=== PATIENT | male | born 1960 | race Caucasian/White ===

== ENCOUNTER 2020-09-26 14:35 | Day surgery (SDC) | payer BC ==
[~2020-09-26] VITALS: Ht 167.6 cm; Wt 90.7 kg
[~2020-09-26 14:35] MED LIST: NO HOME MEDS; ceFAZolin 2gm in dextrose, iso 50 ML IV ONE; famotidine 20mg tablet PO ONE; ringers solution, lacted 1,000 ML IV SCH
[2020-09-26 14:50] VITALS: BP_SYST 151; BP_SYST 152; BP_DIAS 100
[2020-09-26 17:02] LABS: BASOPHILS % (AUTO) 0.5 % (0-1); EOSINOPHILS # (AUTO) 0.1 X10'3 (0-0.9); EOSINOPHILS % (AUTO) 0.9 % (0-6); LYMPHOCYTES # (AUTO) 2.7 X10'3 (1.1-4.8); LYMPHOCYTES % (AUTO) 35.6 % (21-51); MEAN CORPUSCULAR HEMOGLOBIN 30.4 PG (27.0-31.0); MEAN CORPUSCULAR HGB CONC 34.1 g/dL (33.0-36.5); MEAN CORPUSCULAR VOLUME 89.1 FL (78-98); MEAN PLATELET VOLUME 7.8 FL (7.4-10.4); MONOCYTES # (AUTO) 0.5 X10'3 (0-0.9); MONOCYTES % (AUTO) 6.4 % (2-12); NEUTROPHILS # (AUTO) 4.3 X10'3 (1.8-7.7); NEUTROPHILS % (AUTO) 56.6 % (42-75); PRE OP HEMATOCRIT 47.5 % (42.0-52.0); PRE OP HEMOGLOBIN 16.2 g/dL (14.0-17.9); PRE OP PLATELET COUNT 254 X10'3 (140-440); RED BLOOD COUNT 5.33 X10'6 (4.70-6.10)
[2020-09-26 17:06] LABS: ALANINE AMINOTRANSFERASE 52 U/L (12-78); ALBUMIN 3.7 G/DL (3.4-5.0); ALBUMIN/GLOBULIN RATIO 1.1 (1.1-1.5); ALKALINE PHOSPHATASE 79 IU/L (46-116); ANION GAP 8 (8-16); ASPARTATE AMINO TRANSFERASE 25 U/L (10-37); BILIRUBIN,TOTAL 0.4 MG/DL (0.1-1.0); BLOOD UREA NITROGEN 19 MG/DL (7-18); BUN/CREATININE RATIO 23.8 (5.4-32.0); CHLORIDE 105 MMOL/L (99-107); GLUCOSE 92 MG/DL (70-104); POTASSIUM 4.1 MMOL/L (3.5-5.1); SODIUM 138 MMOL/L (135-145); TOTAL CARBON DIOXIDE 25.4 MMOL/L (24-32); TOTAL PROTEIN 7.1 G/DL (6.4-8.2); eGFR > 90 ML/MIN
[2020-09-26] MEDS ORDERED: proCHLORperazine 10 MG/2 ml inj IV PRN ×3 (17:40→21:50)
[2020-09-26] MEDS ORDERED: morphine 4 MG/ML inj SYRINge IV PRN ×2 (17:40→21:50)
[2020-09-26] MEDS ORDERED: ondansetron/PF 4mg/2ml inj IV PRN ×3 (17:40→21:50)
[2020-09-26] MEDS ORDERED: morphine 2 MG/ML inj. syringe IV PRN ×2 (17:40→21:50)
[2020-09-26] MEDS ORDERED: ringers solution, lacted 1,000 ML IV SCH ×2 (17:40→21:50)
[2020-09-26] MEDS ORDERED: meperidine/PF 25mg/ml syringe IV PRN ×6 (17:40→21:50)
[2020-09-26] MEDS ORDERED: OXAZEpam 15mg capsule PO PRN (17:55)
[2020-09-26] MEDS ORDERED: BUPIVAcaine/PF 2.5 mg/ml (0.25%) 30ml vial ONE (20:46)
[2020-09-26] MEDS ORDERED: sevoflurane 250ml liquid IH ONE (21:02)
[2020-09-26] MEDS ORDERED: rocuronium 10mg/ml inj IV ONE (21:04)
[2020-09-26] MEDS ORDERED: midazolam 2 mg/2 ml injection ONE (21:04)
[2020-09-26] MEDS ORDERED: propofol inj 20 ML IV ONE (21:04)
[2020-09-26] MEDS ORDERED: fentaNYL/PF 50MCG/1 ML 2ML syringe ONE (21:04)
[2020-09-26] MEDS ORDERED: dexamethasone sod phosphate 4mg/ml inj. ONE (21:17)
[2020-09-26] MEDS ORDERED: ondansetron/PF 4mg/2ml inj ONE (22:57)
[2020-09-26] MEDS ORDERED: sugammadex 200mg/2ml injection IV ONE (22:58)
[2020-09-26 23:20] VITALS: BP 170/109
--- NOTE | 2020-09-26 23:20 | NUR ---
Received from OR via BED , accompanied by Anesthesiologist DR ANGELA and report given by Anesthesiolgist. PATIENT WAKING UP, DENIES PAIN, V/S WNL, NEUROVASCULAR CHECKS INTACT, 20G PIV RUE, SCD ON, BANDAIDS TO LAP SIGHTS OF ABDOMEN CDI.
[2020-09-26 23:30] VITALS: BP 154/90
[2020-09-26] MEDS ORDERED: HYDROcodone/acetaminophen 10/325mg tab PO ONE (23:30)
[2020-09-26 23:40] VITALS: BP 151/89
[2020-09-26 23:50] VITALS: BP 162/89
[2020-09-27] VITALS: BP 158/85
[2020-09-27 00:10] VITALS: BP 151/82
[2020-09-27 00:20] VITALS: BP 147/83
--- NOTE | 2020-09-27 00:20 | NUR ---
PATIENT A&OX4, DENIES PAIN, V/S WNL, NEUROVASCULAR CHECKS INTACT, 20G PIV LUE D/C, SCD OFF, BANDAIDS TO LAP SIGHTS OF ABDOMEN CDI.. I HAVE REVIEWED D/C INSTRUCTIONS WITH PATIENT AND FAMILY HAVE VERBALIZED UNDERSTANDING.PATIENT WAS D/C HOME WITH ALL BELONGINGS AND FAMILY GAVE TRANSPORT HOME.
--- NOTE | 2020-09-27 00:20 | NUR ---
PATIENT VOIDED 300CC URINE PRIOR TO D/C HOME
== END 2020-09-27 00:20 | disposition home or self-care (01) ==
LOC: PRE-OP 14:35
PROVIDERS: ATTEND Surgery
DX: K42.9 Umbilical hernia without obstruction or gangrene (principal); M19.90 Unspecified osteoarthritis, unspecified site; Z79.899 Other long term (current) drug therapy; Z20.828 Contact with and (suspected) exposure to other viral communicable diseases; Z98.890 Other specified postprocedural states
CPT/HCPCS: 36415; 49652; 80053; 82948; 85025; 87635; 93005; C1758; C1781; C9399; C9803; J1100; J2175; J2250; J2405; J2704; J3010; J3490; J7120; S2900; A4215; A4618; U0003

== ENCOUNTER 2022-03-03 11:00 | Emergency (ER) | payer BC ==
[~2022-03-03] VITALS: Ht 165.1 cm; Wt 86.4 kg
[~2022-03-03 11:00] MED LIST changes: -ceFAZolin 2gm in dextrose, iso 50 ML IV ONE; -famotidine 20mg tablet PO ONE; -ringers solution, lacted 1,000 ML IV SCH
[2022-03-03 13:32] LABS: EOSINOPHILS # (AUTO) 0.1 X10'3 (0-0.9); WHITE BLOOD COUNT 7.2 X10'3 (4.5-11.0)
[2022-03-03 13:34] LABS: BASOPHILS % (AUTO) 0.7 % (0-1); HEMATOCRIT 45.2 % (42.0-52.0); HEMOGLOBIN 15.2 g/dl (14.0-17.9); LYMPHOCYTES # (AUTO) 1.8 X10'3 (1.1-4.8); LYMPHOCYTES % (AUTO) 25.3 % (21-51); MEAN CORPUSCULAR HEMOGLOBIN 29.8 PG (27.0-31.0); MEAN CORPUSCULAR HGB CONC 33.7 g/dL (33.0-36.5); MEAN CORPUSCULAR VOLUME 88.4 FL (78-98); MEAN PLATELET VOLUME 7.5 FL (7.4-10.4); MONOCYTES # (AUTO) 0.6 X10'3 (0-0.9); MONOCYTES % (AUTO) 8.3 % (2-12); NEUTROPHILS # (AUTO) 4.7 X10'3 (1.8-7.7); NEUTROPHILS % (AUTO) 64.7 % (42-75); PLATELET COUNT 227 X10'3 (140-440); RED BLOOD COUNT 5.11 X10'6 (4.70-6.10); RED CELL DISTRIBUTION WIDTH 13.9 % (11.5-14.5)
[2022-03-03 13:37] LABS: ALANINE AMINOTRANSFERASE 36 U/L (12-78); ALBUMIN 3.7 G/DL (3.4-5.0); ALBUMIN/GLOBULIN RATIO 1.1 (1.1-1.5); ALKALINE PHOSPHATASE 67 IU/L (46-116); ANION GAP 7 (8-16); ASPARTATE AMINO TRANSFERASE 27 U/L (10-37); BILIRUBIN,TOTAL 0.2 MG/DL (0.1-1.0); BLOOD UREA NITROGEN 25 MG/DL (7-18); BUN/CREATININE RATIO 28.1 (5.4-32.0); CALCIUM 8.7 MG/DL (8.5-10.1); CHLORIDE 103 MMOL/L (99-107); CREATINE KINASE 364 U/L (39-308); CREATININE 0.89 MG/DL (0.60-1.10); GLUCOSE 103 MG/DL (70-104); POTASSIUM 4.4 MMOL/L (3.5-5.1); SODIUM 139 MMOL/L (135-145); TOTAL CARBON DIOXIDE 29.5 MMOL/L (24-32); eGFR 87 ML/MIN
[2022-03-03 13:57] VITALS: BP 138/92
== END 2022-03-03 13:59 | disposition home or self-care (01) ==
LOC: ER 11:00
DX: I10 Essential (primary) hypertension (principal); R11.10 Vomiting, unspecified; R07.89 Other chest pain; W19.XXXA Unspecified fall, initial encounter; Y93.89 Activity, other specified; Y92.89 Other specified places as the place of occurrence of the external cause; Y99.8 Other external cause status
CPT/HCPCS: 36415; 80053; 82550; 85025; 99284